=== PATIENT | female | born 1970 | race Caucasian/White ===

== ENCOUNTER → 2017-12-21 | Day surgery (SDC) | payer OTHER, MEDICARE ==
[~2017-12-21] VITALS: Ht 160 cm; Wt 83.9 kg
[~2017-12-21] MED LIST: AUGMENTIN 875-1 EACH PO
--- NOTE | 2017-12-21 08:13 | History & Physical Pre-Op ---
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 The patient has undergone an extended course of conservative care, including sugar and activity modification, rest, immobilization and course of NSAIDs. None of this is healed that her any significant relief. The patient presents today for preoperative surgical consultation. Allergies/Medications Allergies: Coded Allergies: prednisone (hives 12/17/17) Uncoded Allergies: EMYCIN (04/24/11) Home Med list Amoxicillin/Potassium Clav (Augmentin 875-125 Tablet) 875 MG-125 MG TABLET 1 TAB PO BID DOG BITTE Past History Medical History Neurological: NONE EENT: NONE Cardiovascular: NONE Respiratory: NONE Gastrointestinal: NONE Hepatic: NONE Renal: NONE Musculoskeletal: NONE Psychiatric: anxiety Endocrine: NONE Blood Disorders: NONE Cancer(s): NONE [employer]OM[employer] ME[employer]/Reproductive: NONE Tetanus Vaccine: 06/17/17 Surgical History Pertinent Surgical History: non-contributory Review of Systems Review of Systems: Unremarkable except for that noted in history present illness Exam & Diagnostic Data Physical Exam: Lungs clear bilaterally. Heart sounds rate and rhythm regular. Lower extremity physical exam demonstrates intact pedal pulses bilaterally. Both the dorsalis pedis and posterior tibial arteries are palpable bilaterally. Patient without any sensorimotor deficits. Deep tendon reflexes grossly intact. Patient noted to have seen and pain with palpation and range of motion to the right first metatarsophalangeal joint. Range of motion is diminished in both dorsiflexion and plantar flexion. Crepitus is identified with range of motion. Assessment/Plan Assessment/Plan: Painful arthritis right first metatarsophalangeal joint. A lengthy discussion reviewing all surgical and conservative options will have the patient at bedside and the patient elected to go forward with surgery despite the risks. As Ranked By This Provider Problem List: 1. Hallux rigidus of right foot Attending MD Review Statement Attending Statement Attending MD Statement: examined this patient
--- NOTE | 2017-12-21 11:42 | Operative Report ---
Operative/Inv Procedure Report Surgery Date: 12/21/17 Name of Procedure: 1 arthrodesis first MPJ right foot 2 intraoperative menstruation of ankle block anesthesia 3 intraoperative application of Bradley compressive dressing and posterior splint right Pre-Operative Diagnosis: 1 severe DJD right first metatarsophalangeal joint Post-Operative Diagnosis: The same Estimated Blood Loss: scant Surgeon/Cloth Piecer: Cedrick SANCHEZ,Dave Newby DPM Anesthesia: moderate sedation, block Operative/Procedure Note Note: After obtaining informed consent the patient was brought to the operating room and placed on the operating table in the supine position. The patient presents today fastened to the operating table utilizing safety belt. After menstruation of IV sedation, 10 cc of 0.5% Marcaine plain was infiltrated about the patient's right ankle. A well-padded ankle tourniquet was placed about the patient's right lower extremity. 2 g of Ancef were delivered intravenously 1 dose. The right foot and ankle were then scrubbed, prepped in the usual aseptic fashion. The right lower extremity was then elevated to exam at the limb, which point the ankle tourniquet inflated 250 mmHg. Attention directed dorsal aspect of the right foot where a 6 cm linear incision was made just medial to the course of the extensor hallucis longus tendon. The dissection was then carried down this obtains tissues. All vital neurovascular structures were identified and protected. A linear capsulotomy was performed exposing significant arthritic changes identified at the medial dorsal aspect of the metatarsal head. These were then removed with a sagittal bone saw. Inspection of the joint demonstrated complete loss of the cartilaginous surfaces on both the head and base of proximal phalanx. Any remaining evidence of cartilage was curetted free and the subchondral bone was then fenestrated with a 6 2 K wire. Next, under intraoperative fluoroscopy the alignment of the metatarsal phalangeal joint was optimized and stabilized temporarily with a smooth K wire. Next 3 5 fully threaded cortical screws were introduced crossing the fusion site again under intraoperative fluoroscopy. The fixation and reduction were noted to be optimal wound was then irrigated with copious amounts of normal sterile saline. The capsular structures reapproximated with 3-0 Vicryl in the septations tissues reapproximate 4-0 Vicryl. The skin edges were then reapproximated with 4-0 nylon. The incision was dressed with Xeroform, 4 x 4's, Kerlix and Ender wrap. A Bradley compressive dressing and posterior splint was then applied to the right lower extremity. Patient noted to tolerate both procedure and anesthesia well and the patient was transported from the operating room to recovery with vital signs stable vascular status intact all digits right foot.
== END ==
LOC: STS 01:45
DX: M19.071 Primary osteoarthritis, right ankle and foot (principal); M20.21 Hallux rigidus, right foot; F17.200 Nicotine dependence, unspecified, uncomplicated
CPT/HCPCS: 88304; C1713; J0131; J0690; J2001; J2250